=== PATIENT | female | born 1980 | race Caucasian/White ===

== ENCOUNTER 2016-07-01 16:28 | Inpatient (IN) | payer MEDICARE, OTHER ==
[2016-07-01 17:20] VITALS: BMI 63.7
[2016-07-01] MEDS ORDERED: SALINE FLUSH 10 ML DISP.SYRIN IVF ONE ×3 (17:37→21:19)
[2016-07-01] MEDS ORDERED: cefTRIAXone SODIUM 1 GM VIAL ONE (17:44)
[2016-07-01] MEDS ORDERED: NICOTINE 21mg 1 EACH PATCH.TD24 TD ONE (17:44)
[2016-07-01] MEDS ORDERED: AZITHROMYCIN 500 MG VIAL IV ONE (17:44)
[2016-07-01] MEDS ORDERED: IPRATROPIUM/ALBUTEROL SULFATE 3 ML AMPUL.NEB NEB ONE ×2 (17:45→19:25)
[2016-07-01] MEDS ORDERED: 0.9 % SODIUM CHLORIDE 250 ML IV ONE (17:45)
[2016-07-01] MEDS ORDERED: 0.9 % SODIUM CHLORIDE 1,000 ML IV ONE (17:45)
[2016-07-01] MEDS ORDERED: 0.9 % SODIUM CHLORIDE 50 ML IV ONE (17:45)
[2016-07-01] MEDS: 0.9 % SODIUM CHLORIDE 1,000 ML IV SCH (18:16)
[2016-07-01] MEDS: NICOTINE 21mg 1 EACH PATCH.TD24 TD SCH (18:16)
[2016-07-01] MEDS: cefTRIAXone SODIUM 1 GM in 0.9 % SODIUM CHLORIDE 50 ML IV SCH (18:16)
[2016-07-01] MEDS: IPRATROPIUM/ALBUTEROL SULFATE 3 ML AMPUL.NEB NEB SCH ×2 (18:17→21:34)
[2016-07-01] MEDS ORDERED: ACETAMINOPHEN 1,000 MG/100 ML INJ IV PRN (18:28)
--- NOTE | 2016-07-01 18:44 | History and Physical Report ---
History of Present Illnes - History of Present Illness Reason for Visit: Pneumonia History of Present Illness: Patient has had URI symptoms for several weeks. Presented to ER yesterday and found to have RML pneumonia without hypoxia. Flu screen negative. Patient refused admission - given a dose of rocephin. Continues to feel much worse today. Has mild asthma. Feels like she can't catch her breath. Low grade fevers. Chills and sweats. Found to be tachypneic. Today she called back and desired admission as she continues to feel worse and need more albuterol. - Past Medical History Cardiac: Other (Tachycardia) Pulmonary: Asthma Psych: Anxiety, Other (Schizoaffective disorder/PTSD/Borderline PD/OCD) Musculoskeletal: Chronic low back pain - Past Surgical History Past Surgical History: Cholecystectomy, (x 3), Hysterectomy, Other (L5 -S1 ruptured disc - polymer disc/cadaver bone/steel plates) - Past Family History Mother Family History: Hypertension - Past Social History Smoke: 1 pack per day Alcohol: None Lives: With Family - Health Maintenance Health Maintenance: Pneumococcal Vaccine Influenza Vaccine: Current for this Influenza Season Pneumonia Vaccine: Yes Resuscitation Status: Resusciation Status Resuscitation Status Full Code Review of Systems - Review of Systems Constitutional: Fever, Chills, Weakness Eyes: negative: pain ENT: Nose Discharge, Nose Congestion. negative: Ear Pain Respiratory: Cough, Shortness of Breath Cardiovascular: negative: Chest Pain Gastrointestinal: negative: Nausea, Vomiting Genitourinary: negative: Dysuria Musculoskeletal: Back Pain (chronic). negative: Neck Pain Skin: negative: Rash Neurological: Weakness - Medications/Allergies Allergies/Adverse Reactions: Allergies Allergy/AdvReac Type Severity Reaction Status Date / Time ketorolac tromethamine Allergy Mild light Verified 09/06/15 13:52 [From Toradol] headed tramadol HCl [From Ultram] Allergy Mild light Verified 09/06/15 13:52 headed codeine [Codeine] AdvReac Mild nausea Verified 09/06/15 13:52 Home Medications: Home Medications Albuterol Sulfate [ProAir RespiClick] 1 puff INH PRN PRN 07/01/16 Estradiol [Minivelle] 1 each TD 07/01/16 Gabapentin [Neurontin] 800 mg PO TID 07/01/16 Propranolol HCl [Inderal] 20 mg PO BID 07/01/16 Quetiapine Fumarate [Seroquel] 300 mg PO HS 07/01/16 Current Inpatient Medications: Current Inpatient Medications Acetaminophen (Ofirmev) 1,000 mg IV Q8H PRN PRN Reason: PAIN Albuterol/Ipratropium (Duoneb) 3 ml NEB Q4 [facility] Last Admin: 07/01/16 18:17 Dose: 3 ml Enoxaparin Sodium (Lovenox) 40 mg SQ QD [facility] Stop: 07/15/16 18:59 Gabapentin (Neurontin) 800 mg PO TID [facility] Sodium Chloride (Normal Saline) 1,000 mls @ 125 mls/hr IV Q10H [facility] Last Admin: 07/01/16 18:16 Dose: 125 mls/hr Azithromycin 500 mg/ Sodium (Chloride) 250 mls @ 125 mls/hr IV Q24H [facility] Stop: 07/11/16 17:59 Ceftriaxone Sodium 1 gm/ (Sodium Chloride) 50 mls @ 100 mls/hr IV QD [facility] Last Admin: 07/01/16 18:16 Dose: 100 mls/hr [place] Carbonate (Lithobid) 600 mg PO AM [facility] Naproxen (Naprosyn) 500 mg PO BID [facility] Nicotine (Habitrol 21mg) 1 each TD DAILY [facility] Last Admin: 07/01/16 18:16 Dose: 1 each Propranolol HCl (Inderal) 20 mg PO BID [facility] Quetiapine Fumarate (Seroquel) 300 mg PO DAILY [facility] Sodium Chloride (Normal Saline Flush) 3 ml IV BID [facility] Venlafaxine HCl (Effexor Xr) 75 mg PO DAILY [facility] Exam - Exam Vital Signs: Vital Signs (72 hours) 06/30/16 06/30/16 07/01/16 11:35 14:35 16:41 Temperature 98.4 F Pulse Rate [ 88 Right Radial] Pulse Rate [ 89 Right] Respiratory 26 H Rate Blood Pressure 115/80 Blood Pressure 115/80 [Left Arm] Blood Pressure 139/83 150/68 [Right Arm] O2 Sat by Pulse 98 Oximetry 07/01/16 17:11 Temperature Pulse Rate [ Right Radial] Pulse Rate [ Right] Respiratory Rate Blood Pressure Blood Pressure [Left Arm] Blood Pressure [Right Arm] O2 Sat by Pulse 95 Oximetry General: Alert, Oriented to Person, Oriented to Place, Oriented to Time, Cooperative, Mild distress HEENT: Atraumatic, PERRLA, EOMI, Mouth Mucous membr. moist/[place], Nose Mucous membr. moist/[place] Neck: Normal Range of Motion Lungs: Rhonchi (RML) Cardiovascular: Tachycardia Abdomen: Normal bowel sounds, Soft, No tenderness Integumentary: Normal Extremities: No edema Neurological: Normal gait, Normal speech, Strength Equal Bilat, Normal tone, Cranial nerves 3-12 NL Psych/Mental Status: Mental status NL, Mood NL, Appropriate Affect, Intact Judgment Assessment/Plan - Assessment/Plan (1) RML pneumonia Status: Acute Current Visit: Yes Qualifiers: Pneumonia type: due to unspecified organism Qualified Code(s): J18.9 - Pneumonia, unspecified organism Plan: Patient has failed outpatient treatment. Remains tachypneic. Blood cultures drawn. Start rocephin and zithromax. Duonebs. Monitor SATS. (2) Chronic back pain Status: Chronic Current Visit: No Qualifiers: Back pain location: low back pain (3) Schizoaffective disorder Status: Chronic Current Visit: No Qualifiers: Schizoaffective disorder type: depressive Qualified Code(s): F25.1 - Schizoaffective disorder, depressive type Plan: Continue current meds. (4) Anxiety Status: Acute Current Visit: Yes (5) Asthma Status: Acute Current Visit: Yes Qualifiers: Asthma severity: mild intermittent Asthma complication type: with acute exacerbation Qualified Code(s): J45.21 - Mild intermittent asthma with (acute ) exacerbation Plan: I don't think patient needs steroids at this time. Will schedule duonebs. Watch closely. VTE Assessment - RISK FACTOR SCORE VTE RISK FACTOR SCORES: ACUTE INFECTION OTHER THEN SEPSIS, ANTICIPATED BED CONFINEMENT OR IMMOBILIZATION > 24 HOURS - RISK VTE MODERATE RISK: SCORE OF 2 (RISK PROXIMAL DVT 2-4%) PROPHYAXIS NEEDED (Up moving around room so will only do chemical prevention)
[2016-07-01] MEDS ORDERED: ENOXAPARIN SODIUM 40 MG/0.4 ML DISP.SYRIN SQ ONE (19:24)
[2016-07-01] MEDS ORDERED: NAPROXEN 250 MG TABLET ONE (19:24)
[2016-07-01] MEDS ORDERED: PROPRANOLOL HCL 20 MG TABLET PO ONE (19:24)
[2016-07-01] MEDS ORDERED: ACETAMINOPHEN 1,000 MG/100 ML INJ IV ONE (19:25)
[2016-07-01] MEDS ORDERED: GABAPENTIN 100 MG CAPSULE ONE ×2 (19:25→19:26)
[2016-07-01] MEDS ORDERED: QUEtiapine FUMARATE 25 MG TABLET PO ONE ×2 (19:25→20:50)
[2016-07-01] MEDS ORDERED: ONDANSETRON HCL/PF 4 MG/ 2ML VIAL IVP PRN (19:34)
[2016-07-01] MEDS ORDERED: guaiFENesin/CODEINE PHOS 5ML SYR PO ONE (19:40)
[2016-07-01] MEDS: ENOXAPARIN SODIUM 40 MG/0.4 ML DISP.SYRIN SQ SCH (19:43)
[2016-07-01] MEDS: GABAPENTIN 300 MG CAPSULE PO SCH (19:43)
[2016-07-01] MEDS: guaiFENesin/CODEINE PHOS 30ML BOTTLE PO PRN (19:44)
[2016-07-01] MEDS: SALINE FLUSH 10 ML DISP.SYRIN IV SCH (19:45)
[2016-07-01] MEDS: PROPRANOLOL HCL 20 MG TABLET PO SCH (19:45)
[2016-07-01] MEDS: NAPROXEN 250 MG TABLET PO SCH (19:45)
[2016-07-01] MEDS: QUEtiapine FUMARATE 25 MG TABLET PO SCH (20:53)
[2016-07-01] MEDS: AZITHROMYCIN 500 MG in 0.9 % SODIUM CHLORIDE 250 ML IV SCH (20:54)
[2016-07-01] MEDS ORDERED: HYDROcodone /APAP 5/325 1 EACH TABLET ONE (21:38)
[2016-07-01] MEDS: HYDROcodone /APAP 5/325 1 EACH TABLET PO PRN (21:42)
[2016-07-02] MEDS ORDERED: SALINE FLUSH 10 ML DISP.SYRIN IVF ONE ×4 (02:01→22:37)
[2016-07-02] MEDS: IPRATROPIUM/ALBUTEROL SULFATE 3 ML AMPUL.NEB NEB SCH ×6 (02:06→20:51)
[2016-07-02] MEDS ORDERED: VENLAFAXINE HCL 37.5 MG CAP.ER.24H PO ONE (05:58)
[2016-07-02] MEDS ORDERED: NAPROXEN 250 MG TABLET ONE ×2 (05:59→19:19)
[2016-07-02] MEDS ORDERED: PROPRANOLOL HCL 20 MG TABLET PO ONE ×2 (05:59→19:19)
[2016-07-02] MEDS ORDERED: QUEtiapine FUMARATE 25 MG TABLET PO ONE (06:00)
[2016-07-02] MEDS ORDERED: NICOTINE 21mg 1 EACH PATCH.TD24 TD ONE (06:00)
[2016-07-02] MEDS ORDERED: LITHIUM CARBONATE 300 MG CAPSULE PO ONE (06:01)
[2016-07-02] MEDS ORDERED: GABAPENTIN 100 MG CAPSULE ONE ×3 (06:01→16:49)
[2016-07-02] MEDS ORDERED: guaiFENesin/CODEINE PHOS 5ML SYR PO ONE ×3 (06:05→19:59)
[2016-07-02] MEDS ORDERED: HYDROcodone /APAP 5/325 1 EACH TABLET ONE ×3 (06:05→19:19)
[2016-07-02] MEDS: HYDROcodone /APAP 5/325 1 EACH TABLET PO PRN ×3 (06:14→20:01)
[2016-07-02] MEDS: guaiFENesin/CODEINE PHOS 30ML BOTTLE PO PRN ×3 (06:16→20:01)
[2016-07-02] MEDS: 0.9 % SODIUM CHLORIDE 1,000 ML IV SCH ×2 (06:27→13:12)
[2016-07-02 06:32] LABS: BASOPHILS % 0.2 (0.0-1.5); EOSINOPHILS % 1.5 % (0.0-6.8); LYMPHOCYTES # 2.6 # k/uL (0.6-4.0); MEAN CORPUSCULAR HEMOGLOBIN 29.4 pg (28.0-34.0); MONOCYTES # 0.4 # k/uL (0.0-0.9); MONOCYTES % 4.3 % (0.0-11.0); NEUTROPHILS # 7.2 # k/uL (1.4-7.7)
[2016-07-02 06:52] LABS: eGFR (African) > 60; eGFR (Non-African) > 60
--- NOTE | 2016-07-02 06:58 | Diagnostic Imaging Report ---
[facility] [id number] [facility].[address] 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 COMPARISON: 06/30/2016. TECHNIQUE: PA and lateral views of the chest were performed. FINDINGS: There is a right middle lobe consolidative infiltrate, similar to that seen previously. ~The left lung is clear. ~No pneumothorax or pulmonary edema. ~The heart is not enlarged. IMPRESSION: Right middle lobe pneumonia. ~The left lung is clear. 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
--- NOTE | 2016-07-02 07:45 | Inpatient Progress Note ---
Subjective - Required Recertification Statement I anticipate X number of days because-include discharge plan: 1 - Review of Systems Subjective: Patient feeling better today. Feels breathing is easier. Objective - Exam Vitals and I&O: Vital Signs Temp 98.6 F 07/02/16 06:00 Pulse 72 07/02/16 06:00 Resp 20 07/02/16 06:00 BP 103/62 07/02/16 06:00 Pulse Ox 99 07/02/16 06:00 Intake & Output 07/01/16 07/01/16 07/02/16 11:59 23:59 11:59 Intake Total 1500 Balance 1500 Weight 158 kg Intake: IV 1500 Right Wrist 1500 Other: Voiding Method Toilet # Voids 1 General: Alert, Oriented to Person, Oriented to Place, Oriented to Time, Cooperative, No acute distress Lungs: Rhonchi Cardiovascular: Regular rate - Results Results: Laboratory Results WBC 10.40 K/ul (4.00-12.00) 07/02/16 06:25 RBC 3.74 M/ul (3.90-5.20) L 07/02/16 06:25 Hgb 11.0 g/dL (12.0-16.0) L 07/02/16 06:25 Hct 34.7 % (34.5-46.5) 07/02/16 06:25 MCV 92.9 fl (80.0-100.0) 07/02/16 06:25 MCH 29.4 pg (28.0-34.0) 07/02/16 06:25 MCHC 31.7 g/dL (30.0-36.0) 07/02/16 06:25 RDW 13.2 % (11.3-14.3) 07/02/16 06:25 Plt Count 355 K/mm3 (130-400) 07/02/16 06:25 Neut % (Auto) 68.6 % (39.0-79.0) 07/02/16 06:25 Lymph % (Auto) 24.6 % (16.0-50.0) 07/02/16 06:25 [place] % (Auto) 4.3 % (0.0-11.0) 07/02/16 06:25 Eos % (Auto) 1.5 % (0.0-6.8) 07/02/16 06:25 Baso % (Auto) 0.2 (0.0-1.5) 07/02/16 06:25 Neut # 7.2 # k/uL (1.4-7.7) 07/02/16 06:25 Lymph # 2.6 # k/uL (0.6-4.0) 07/02/16 06:25 [place] # 0.4 # k/uL (0.0-0.9) 07/02/16 06:25 Eos # 0.2 # k/uL (0.0-0.6) 07/02/16 06:25 Baso # 0.0 # k/uL (0.0-0.5) 07/02/16 06:25 Reactive Lymphs % 0.8 % (0.0-5.0) 07/02/16 06:25 Reactive Lymphs # 0.1 # k/uL (0.0-0.8) 07/02/16 06:25 Sodium 141 mmol/L (136-145) 07/02/16 06:25 Potassium 3.7 mmol/L (3.5-5.0) 07/02/16 06:25 Chloride 103 mmol/L (98-110) 07/02/16 06:25 Carbon Dioxide 28 mmol/L (20-32) 07/02/16 06:25 BUN 6 mg/dL (10-26) L 07/02/16 06:25 Creatinine 0.6 mg/dL (0.4-1.5) 07/02/16 06:25 Estimated Creat Clear 376 07/02/16 06:25 Est GFR ( Amer) > 60 (60-) 07/02/16 06:25 Est GFR (Non-Af Amer) > 60 (60-) 07/02/16 06:25 Glucose 88 mg/dL (70-99) 07/02/16 06:25 Calcium 9.7 mg/dL (8.5-10.5) 07/02/16 06:25 Total Bilirubin 0.2 mg/dL (0.2-1.2) 07/02/16 06:25 AST 11 U/L (0-41) 07/02/16 06:25 ALT 20 U/L (0-45) 07/02/16 06:25 Alkaline Phosphatase 92 U/L (46-116) 07/02/16 06:25 Total Protein 7.4 g/dL (6.0-8.5) 07/02/16 06:25 Albumin 4.3 g/dL (3.0-5.5) 07/02/16 06:25 Assessment/Plan - Assessment/Plan (1) RML pneumonia Status: Acute Current Visit: Yes Qualifiers: Pneumonia type: due to unspecified organism Qualified Code(s): J18.9 - Pneumonia, unspecified organism Plan: CBC normal. Cont. IV antibiotics. Blood cultures not done due to 2 days of antibiotics before admission and afebrile. Anticipate d/c tomorrow. (2) Chronic back pain Status: Chronic Current Visit: No Qualifiers: Back pain location: low back pain Plan: K pad prn. (3) Schizoaffective disorder Status: Chronic Current Visit: No Qualifiers: Schizoaffective disorder type: depressive Qualified Code(s): F25.1 - Schizoaffective disorder, depressive type (4) Anxiety Status: Acute Current Visit: Yes (5) Asthma Status: Acute Current Visit: Yes Qualifiers: Asthma severity: mild intermittent Asthma complication type: with acute exacerbation Qualified Code(s): J45.21 - Mild intermittent asthma with (acute ) exacerbation
[2016-07-02] MEDS: VENLAFAXINE HCL 37.5 MG CAP.ER.24H PO SCH (08:32)
[2016-07-02] MEDS: NICOTINE 21mg 1 EACH PATCH.TD24 TD SCH (08:33)
[2016-07-02] MEDS: PROPRANOLOL HCL 20 MG TABLET PO SCH ×2 (08:35→20:55)
[2016-07-02] MEDS: NAPROXEN 250 MG TABLET PO SCH ×2 (08:36→20:58)
[2016-07-02] MEDS: LITHIUM CARBONATE 300 MG CAPSULE PO SCH (08:36)
[2016-07-02] MEDS: GABAPENTIN 300 MG CAPSULE PO SCH ×3 (08:40→18:16)
[2016-07-02] MEDS: QUEtiapine FUMARATE 25 MG TABLET PO SCH (10:25)
[2016-07-02] MEDS: SALINE FLUSH 10 ML DISP.SYRIN IV SCH ×2 (13:09→21:31)
[2016-07-02] MEDS ORDERED: ENOXAPARIN SODIUM 40 MG/0.4 ML DISP.SYRIN SQ ONE (16:50)
[2016-07-02] MEDS ORDERED: cefTRIAXone SODIUM 1 GM VIAL ONE (17:46)
[2016-07-02] MEDS ORDERED: AZITHROMYCIN 500 MG VIAL IV ONE (17:48)
[2016-07-02] MEDS ORDERED: 0.9 % SODIUM CHLORIDE 50 ML IV ONE (17:48)
[2016-07-02] MEDS ORDERED: 0.9 % SODIUM CHLORIDE 250 ML IV ONE (17:49)
[2016-07-02] MEDS ORDERED: IPRATROPIUM/ALBUTEROL SULFATE 3 ML AMPUL.NEB NEB ONE (17:57)
[2016-07-02] MEDS: AZITHROMYCIN 500 MG in 0.9 % SODIUM CHLORIDE 250 ML IV SCH (18:09)
[2016-07-02] MEDS: cefTRIAXone SODIUM 1 GM in 0.9 % SODIUM CHLORIDE 50 ML IV SCH (18:09)
[2016-07-02] MEDS: ENOXAPARIN SODIUM 40 MG/0.4 ML DISP.SYRIN SQ SCH (18:51)
[2016-07-03] MEDS ORDERED: 0.9 % SODIUM CHLORIDE 1,000 ML IV ONE (00:59)
[2016-07-03] MEDS: 0.9 % SODIUM CHLORIDE 1,000 ML IV SCH ×2 (01:02→09:35)
[2016-07-03] MEDS ORDERED: HYDROcodone /APAP 5/325 1 EACH TABLET ONE ×2 (04:27→10:36)
[2016-07-03] MEDS ORDERED: guaiFENesin/CODEINE PHOS 30ML BOTTLE PO ONE (04:29)
[2016-07-03] MEDS: HYDROcodone /APAP 5/325 1 EACH TABLET PO PRN ×2 (04:29→10:39)
[2016-07-03] MEDS: IPRATROPIUM/ALBUTEROL SULFATE 3 ML AMPUL.NEB NEB SCH ×3 (04:31→11:36)
[2016-07-03] MEDS ORDERED: VENLAFAXINE HCL 37.5 MG CAP.ER.24H PO ONE (04:58)
[2016-07-03] MEDS ORDERED: SALINE FLUSH 10 ML DISP.SYRIN IVF ONE ×2 (04:58→09:27)
[2016-07-03] MEDS ORDERED: LITHIUM CARBONATE 300 MG CAPSULE PO ONE (04:59)
[2016-07-03] MEDS ORDERED: PROPRANOLOL HCL 20 MG TABLET PO ONE (04:59)
[2016-07-03] MEDS ORDERED: NAPROXEN 250 MG TABLET ONE (04:59)
[2016-07-03] MEDS ORDERED: NICOTINE 21mg 1 EACH PATCH.TD24 TD ONE (04:59)
[2016-07-03] MEDS ORDERED: GABAPENTIN 100 MG CAPSULE ONE (04:59)
[2016-07-03] MEDS: VENLAFAXINE HCL 37.5 MG CAP.ER.24H PO SCH (08:56)
[2016-07-03] MEDS: PROPRANOLOL HCL 20 MG TABLET PO SCH (08:57)
[2016-07-03] MEDS: LITHIUM CARBONATE 300 MG CAPSULE PO SCH (08:57)
[2016-07-03] MEDS: NAPROXEN 250 MG TABLET PO SCH (08:57)
[2016-07-03] MEDS: GABAPENTIN 300 MG CAPSULE PO SCH (08:57)
[2016-07-03] MEDS: NICOTINE 21mg 1 EACH PATCH.TD24 TD SCH (08:58)
--- NOTE | 2016-07-03 09:02 | Discharge Summary ---
Discharge Summary - Discharge Sumary History of Present Illness: Patient has had URI symptoms for several weeks. Presented to ER yesterday and found to have RML pneumonia without hypoxia. Flu screen negative. Patient refused admission - given a dose of rocephin. Continues to feel much worse today. Has mild asthma. Feels like she can't catch her breath. Low grade fevers. Chills and sweats. Found to be tachypneic. Today she called back and desired admission as she continues to feel worse and need more albuterol. Condition at Discharge: Stable Home Medications: Ambulatory Orders Medication Instructions Recorded [place] Carbonate 600 mg PO AM 02/14/13 Venlafaxine HCl [Effexor Xr] 75 mg PO DAILY 11/11/13 Albuterol Sulfate [ProAir 1 puff INH PRN PRN 07/01/16 RespiClick] Estradiol [Minivelle] 1 each TD 07/01/16 Gabapentin [Neurontin] 800 mg PO TID 07/01/16 Propranolol HCl [Inderal] 20 mg PO BID 07/01/16 Quetiapine Fumarate [Seroquel] 300 mg PO HS 07/01/16 Levofloxacin [Levaquin] 500 mg PO DAILY #7 tablet 07/03/16 Consultations this Visit: None Procedures this Visit: None Allergies/Adverse Reactions: Allergies Allergy/AdvReac Type Severity Reaction Status Date / Time ketorolac tromethamine Allergy Mild light Verified 09/06/15 13:52 [From Toradol] headed tramadol HCl [From Ultram] Allergy Mild light Verified 09/06/15 13:52 headed codeine [Codeine] AdvReac Mild nausea Verified 09/06/15 13:52 Patient Problems: Current Active Problems Problem Status Onset Anxiety Acute Asthma Acute RML pneumonia Acute Hospital Course: Discharge Dx - RML pneumonia; Asthma; Anxiety; Chronic back pain. Disposition - Home
[2016-07-03] MEDS: guaiFENesin/CODEINE PHOS 30ML BOTTLE PO PRN (09:17)
[2016-07-03] MEDS ORDERED: IPRATROPIUM/ALBUTEROL SULFATE 3 ML AMPUL.NEB NEB ONE (09:28)
[2016-07-03] MEDS: SALINE FLUSH 10 ML DISP.SYRIN IV SCH (09:30)
[2016-07-03] MEDS ORDERED: AZITHROMYCIN 250 MG TABLET PO ONE ×2 (10:20→10:39)
[2016-07-03] MEDS ORDERED: cefTRIAXone SODIUM 1 GM VIAL IM ONE (10:23)
[2016-07-03] MEDS ORDERED: cefTRIAXone SODIUM 1 GM VIAL ONE (10:38)
[2016-07-03 12:27] VITALS: BP 129/90
[2016-07-03] MEDS ORDERED: QUEtiapine FUMARATE 25 MG TABLET PO SCH (21:00)
== END 2016-07-03 11:17 | disposition home or self-care (01) | DRG 194 ==
LOC: SOUTH 16:28
PROVIDERS: ADMIT Family Medicine; ATTEND Family Medicine
DX: J18.9 Pneumonia, unspecified organism (principal); J45.901 Unspecified asthma with (acute) exacerbation; F41.9 Anxiety disorder, unspecified; M54.5 Low back pain
CPT/HCPCS: 36415; 71020; 80053; 85025; A9270; J0456; J0696; J1650; J7030; J7050; 96365; 96375; 99222; 99232; 99238; 99283; 99284; J2405; J7626; S1016

== ENCOUNTER 2016-07-04 21:29 | Emergency (ER) | payer MEDICARE, OTHER ==
[2016-07-04] MEDS ORDERED: ALBUTEROL SULFATE 2.5 MG/3 ML AMPUL.NEB NEB ONE (22:13)
[2016-07-04] MEDS ORDERED: methylPREDNISolone SOD SUCC 40 MG/ML VIAL IM ONE ×2 (22:15→22:22)
--- NOTE | 2016-07-04 22:56 | ED Physician Documentation ---
General Adult - HISTORIAN Historian: patient - HPI Stated Complaint: cough, recent dx pneumonia Chief Complaint: General Adult Onset: days ago Timing: still present Further Comments: yes (Pt is a 36 yo female who was d/c'd from [facility] on 07/01/16 after admission for pneuomonia. Pt is continuing to take Levquin and albuterol MDI's at home. Pt has had nasal discharge with thick yellow discharge and is not feeling much better. Pt also states that she is suffering from anxiety and that her insurance will not cover the vistaril that she usually takes for it.) - ROS CONST: fever, chills, other (malaise) EYES/ENT: nasal drainage, nasal congestion CVS/RESP: shortness of breath (chest discomfort is improving since tx for pneumonia), cough GI/: none MS/SKIN/LYMPH: none - PAST HX Past History: asthma (HLD, SchizoAffective d/o, ), other Surgeries/Procedures: , cholecystectomy, hysterectomy, other (ortho) Allergies/Adverse Reactions: Allergies Allergy/AdvReac Type Severity Reaction Status Date / Time ketorolac tromethamine Allergy Mild light Verified 07/04/16 22:44 [From Toradol] headed tramadol HCl [From Ultram] Allergy Mild light Verified 07/04/16 22:44 headed codeine [Codeine] AdvReac Mild nausea Verified 07/04/16 22:44 Home Medications: Ambulatory Orders Medication Instructions Recorded [place] Carbonate 600 mg PO AM 02/14/13 Venlafaxine HCl [Effexor Xr] 75 mg PO DAILY 11/11/13 Albuterol Sulfate [ProAir 1 puff INH PRN PRN 07/01/16 RespiClick] Estradiol [Minivelle] 1 each TD DIRECTED 07/01/16 Gabapentin [Neurontin] 800 mg PO TID 07/01/16 Propranolol HCl [Inderal] 20 mg PO BID 07/01/16 Quetiapine Fumarate [Seroquel] 300 mg PO HS 07/01/16 Levofloxacin [Levaquin] 500 mg PO DAILY #7 tablet 07/03/16 - SOCIAL HX Smoking History: cigarettes - FAMILY HX Family History: No - VITAL SIGNS Vital Signs: Vital Signs Temp Pulse Resp BP Pulse Ox 133/86 07/03/16 10:00 - REVIEWED ASSESSMENTS Nursing Assessment Reviewed: Yes Vitals Reviewed: Yes Progress - Progress Progress: Albuterol HFN x 1 Solu-medrol 40 mg IM Ativan 1 mg po Azithromycin 500 mg po Rx Albuterol (2.5/3ml). One nebulizer treatment every 4 to 6 hrs as needed. ( May use MDI Albuterol instead if desired.) Rx Azithromycin 250 mg. Take one daily for 5 days. Rx Ativan 1 mg. Take one every 8 hrs as needed for anxiety. Follow up with primary provider if symptoms continue. Continue other home medications. - EKG/XRAY/CT XRAY: chest (Slightly improved right middle lobe pneumonia since 07/02/16.) ED Results Lab/Radiology - Orders Orders: ED Orders Category Date Time Status CHEST 2 VIEW [CHEST P.A.&LAT 2 VIEWS] [RAD] Stat Exams 07/04/16 Ordered Albuterol Sulfate [Ventolin] Med 07/04/16 22:13 Discontinued 2.5 mg NEB NOW ONE methylPREDNISolone SOD SUCC [Solu-MEDROL] Med 07/04/16 22:22 Discontinued 40 mg IM NOW ONE methylPREDNISolone SOD SUCC [Solu-MEDROL] Med 07/04/16 22:15 Discontinued 80 mg IM NOW ONE General Adult Physical Exam - PHYSICAL EXAM GENERAL APPEARANCE: moderate distress EENT: eye inspection normal, ENT inspection normal, pharynx normal NECK: normal inspection, supple RESPIRATORY: wheezes CVS: reg rate & rhythm, heart sounds normal ABDOMEN: soft, no organomegaly, normal bowel sounds BACK: normal inspection, no CVA tenderness SKIN: warm/dry, normal color EXTREMITIES: non-tender, normal range of motion, no evidence of injury, no edema NEURO: oriented X3, motor nml, sensation nml, other (anxious) Discharge Clincal Impression: Anxiety Pneumonia Qualifiers: Pneumonia type: due to unspecified organism Laterality: right Lung location: middle lobe of lung Qualified Code(s): J18.9 - Pneumonia, unspecified organism Referrals: Praveena Abdi MD [Primary Care Provider] - 2 Days Home Medications: Ambulatory Orders [place] Carbonate 600 mg PO AM 02/14/13 Venlafaxine HCl [Effexor Xr] 75 mg PO DAILY 11/11/13 Albuterol Sulfate [ProAir RespiClick] 1 puff INH PRN PRN 07/01/16 Estradiol [Minivelle] 1 each TD DIRECTED 07/01/16 Gabapentin [Neurontin] 800 mg PO TID 07/01/16 Propranolol HCl [Inderal] 20 mg PO BID 07/01/16 Quetiapine Fumarate [Seroquel] 300 mg PO HS 07/01/16 Levofloxacin [Levaquin] 500 mg PO DAILY #7 tablet 07/03/16 Condition: Good Disposition: HOME, SELF-CARE Decision to Admit: NO Decision Time: 00:35
[2016-07-04] MEDS ORDERED: 0.9 % SODIUM CHLORIDE 1,000 ML IV ONE (23:08)
[2016-07-04] MEDS ORDERED: LORazepam 1 MG TABLET PO ONE (23:42)
[2016-07-05] MEDS ORDERED: AZITHROMYCIN 250 MG TABLET PO ONE
[2016-07-05 00:05] LABS: BASOPHILS % 0.3 (0.0-1.5); EOSINOPHILS % 0.5 % (0.0-6.8); LYMPHOCYTES # 3.4 # k/uL (0.6-4.0); MEAN CORPUSCULAR HEMOGLOBIN 29.5 pg (28.0-34.0); MONOCYTES # 0.6 # k/uL (0.0-0.9); MONOCYTES % 4.5 % (0.0-11.0); NEUTROPHILS # 8.2 # k/uL (1.4-7.7)
[2016-07-05 00:16] LABS: eGFR (African) > 60; eGFR (Non-African) > 60
[2016-07-05 02:41] VITALS: BP 144/101
--- NOTE | 2016-07-05 06:37 | Diagnostic Imaging Report ---
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 ~There is no parapneumonic effusion. ~ The left lung is clear. ~Heart size is normal. ~The right middle lobe infiltrate has slightly improved since the 07/02/2016 exam. IMPRESSION: ~ Slightly improved right middle lobe pneumonia. ~ Electronically signed on Jul 04, 2016 11:15:01 PM CORPORATE ADMINISTRATIVE ASSISTANT by: Sanjay RODRIGUEZ
== END 2016-07-05 00:36 | disposition home or self-care (01) ==
LOC: ED 21:29
DX: J18.9 Pneumonia, unspecified organism (principal); F41.9 Anxiety disorder, unspecified
CPT/HCPCS: 71020; 80053; 85025; J1030; 96372; 99283; J2920; S1016

== ENCOUNTER 2016-07-17 02:37 | Emergency (ER) | payer MEDICARE, OTHER ==
[2016-07-17] MEDS ORDERED: BUTORPHANOL TARTRATE 2 MG/ML VIAL IM ONE (03:08)
--- NOTE | 2016-07-17 03:10 | ED Physician Documentation ---
Sore Throat/Dental Pain - HISTORIAN Historian: patient - HPI Stated Complaint: dental pain Chief Complaint: Dental Pain Onset: days ago Context: Fractured Tooth, Dental Caries - ROS CONST: no problems CVS/RESP: none GI/: denies: nausea, vomiting NEURO/PSYCH: none - PAST HX Past History: gum disease Other History: other (bipolar) Allergies/Adverse Reactions: Allergies Allergy/AdvReac Type Severity Reaction Status Date / Time ketorolac tromethamine Allergy Mild light Verified 07/17/16 02:47 [From Toradol] headed tramadol HCl [From Ultram] Allergy Mild light Verified 07/17/16 02:47 headed codeine [Codeine] AdvReac Mild nausea Verified 07/17/16 02:47 Home Medications: Ambulatory Orders Medication Instructions Recorded [place] Carbonate 600 mg PO AM 02/14/13 Venlafaxine HCl [Effexor Xr] 75 mg PO DAILY 11/11/13 Albuterol Sulfate [ProAir 1 puff INH PRN PRN 07/01/16 RespiClick] Estradiol [Minivelle] 1 each TD DIRECTED 07/01/16 Gabapentin [Neurontin] 800 mg PO TID 07/01/16 Propranolol HCl [Inderal] 20 mg PO BID 07/01/16 Quetiapine Fumarate [Seroquel] 300 mg PO HS 07/01/16 - SOCIAL HX Smoking History: cigarettes Alcohol Use: occasionally - FAMILY HX Family History: No - VITAL SIGNS Vital Signs: Vital Signs Temp Pulse Resp BP Pulse Ox 97.8 F 74 14 112/76 98 07/17/16 02:37 07/17/16 02:37 07/17/16 02:37 07/17/16 02:37 07/17/16 02:37 - REVIEWED ASSESSMENTS Nursing Assessment Reviewed: Yes Vitals Reviewed: Yes ED Results Lab/Radiology - Orders Orders: ED Orders Category Date Time Status Butorphanol Tartrate [Stadol] Med 07/17/16 03:08 Once 2 mg IM NOW ONE Dental Pain Physical Exam - EXAM General Appearance: mild distress Mouth/Throat: lips nml, pharynx nml, voice nml, no drooling, no air way problems , no thrush, membranes nml, dental tenderness, widespread dental decay CVS: reg. rate & rhythm Skin: warm/dry Neuro/Psych: No: weakness Discharge Clincal Impression: Dental caries, Pain, dental Referrals: Praveena Abdi MD [Primary Care Provider] - 2 Days Home Medications: Ambulatory Orders [place] Carbonate 600 mg PO AM 02/14/13 Venlafaxine HCl [Effexor Xr] 75 mg PO DAILY 11/11/13 Albuterol Sulfate [ProAir RespiClick] 1 puff INH PRN PRN 07/01/16 Estradiol [Minivelle] 1 each TD DIRECTED 07/01/16 Gabapentin [Neurontin] 800 mg PO TID 07/01/16 Propranolol HCl [Inderal] 20 mg PO BID 07/01/16 Quetiapine Fumarate [Seroquel] 300 mg PO HS 07/01/16 Condition: Stable Disposition: 01 HOME, SELF-CARE Decision to Admit: NO Decision Time: 03:09
[2016-07-17 06:58] VITALS: BP 112/76
== END 2016-07-17 03:18 | disposition home or self-care (01) ==
LOC: ED 02:37
DX: K02.9 Dental caries, unspecified (principal)
CPT/HCPCS: 96372; 99282; 99283; J0595

== ENCOUNTER 2017-02-13 09:25 | Emergency (ER) | payer MEDICARE, OTHER ==
[2017-02-13] MEDS ORDERED: ACETAMINOPHEN 325 MG TABLET PO ONE (10:08)
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
[2017-02-13 10:32] VITALS: BP 122/59
[2017-02-13 10:35] LABS: AMPHETAMINE NEGATIVE ng/mL (<1000); BARBITURATES NEGATIVE ng/mL (<300); CANNABINOIDS NEGATIVE ng/mL (< 50); COCAINE NEGATIVE ng/mL (<150); METHAMPHETAMINE NON NEGATIVE ng/mL (<1000); METHYLENEDIOXYMETHAMPHETAMINE NEGATIVE ng/mL (<500); MORPHINE NEGATIVE ng/mL (<300)
== END 2017-02-13 10:30 | disposition home or self-care (01) ==
LOC: ED 09:25
DX: F15.10 Other stimulant abuse, uncomplicated (principal)
CPT/HCPCS: 80377; 99283; G0481

== ENCOUNTER 2018-07-11 20:16 | Emergency (ER) | payer OTHER ==
[~2018-07-11 20:16] MED LIST: HYDROcodone /APAP 5/325 1 EACH TABLET ONE; KETOROLAC TROMETHAMINE 60 MG/2 ML VIAL ONE; methylPREDNISolone SOD SUCC 125 MG/2 ML VIAL ONE
--- NOTE | 2018-07-12 06:30 | Diagnostic Imaging Report ---
KASSANDRA WARREN [facility] [id number] [facility] [address] [place], [place]. [address] Report Submission Date: Jul 11, 2018 9:51:19 PM RN TRAUMA Patient Study Name: MANDA SPRING Date: Jul 11, 2018 9:05:11 PM RN TRAUMA Modality Type: DX Gender: U Description: SPINE : 78 Institution: [facility] Physician: KASSANDRA WARREN 3 views of the sacrum History: FALL, PAIN X 2 DAYS No comparison studies The pubic symphysis and both sacroiliac joints are intact. Hardware is seen at the S1 region. No dislocation at the sacrococcygeal joint. No obvious fracture fragment is identified. Nondisplaced fracture is difficult to entirely exclude due to osseous overlap Impression: 1. Intact pubic symphysis and sacroiliac joints. No dislocation. No fracture fragment is identified. 2. A lucent line at the inferior sacrum is likely architectural however a non displaced sacral fracture is difficult to entirely exclude secondary to osseous overlap. Nuclear medicine scan may be considered as relevant. Electronically signed on Jul 11, 2018 9:51:19 PM RN TRAUMA by: Shannan RODRIGUEZ
== END 2018-07-11 21:54 ==
LOC: ED 20:16
DX: S39.012A Strain of muscle, fascia and tendon of lower back, initial encounter (principal); W01.0XXA Fall on same level from slipping, tripping and stumbling without subsequent striking against object, initial encounter; Y93.9 Activity, unspecified; Y92.009 Unspecified place in unspecified non-institutional (private) residence as the place of occurrence of the external cause
CPT/HCPCS: 72220; 96372; 99282; 99284; A9270; J1885; J2930

== ENCOUNTER 2018-08-26 17:32 | Emergency (ER) | payer OTHER ==
[2018-08-26] MEDS ORDERED: AMOXICILLIN/POT 875/125 1 EACH PO ONE (18:05)
[2018-08-26] MEDS ORDERED: HYDROcodone /APAP 5/325 1 EACH TABLET PO ONE (18:07)
--- NOTE | 2018-08-26 18:10 | ED Physician Documentation ---
Sore Throat/Dental Pain - HPI Stated Complaint: Right jaw pain Chief Complaint: Dental Pain Additional Information: Patient presents to ED with a 2 day history of right lower dental pain after tooth extraction on Monday. Patient states the dentist only gave her 5 tablet of [place] and she is out. She has an appointment with the dental surgeon tomorrow. Patient is smoking. Onset: days ago (2) Associated Symptoms: denies: fever - ROS CONST: no problems CVS/RESP: none GI/: denies: nausea, vomiting MS/SKIN/LYMPH: denies: rash NEURO/PSYCH: denies: headache - PAST HX Past History: none Other History: none Allergies/Adverse Reactions: Allergies Allergy/AdvReac Type Severity Reaction Status Date / Time oxymorphone Allergy Face Verified 08/26/18 17:55 Swelling codeine [Codeine] AdvReac Mild nausea Verified 08/26/18 17:55 ketorolac tromethamine AdvReac Mild light Verified 08/26/18 17:55 [From Toradol] headed tramadol HCl [From Ultram] AdvReac Mild light Verified 08/26/18 17:55 headed Home Medications: Ambulatory Orders Medication Instructions Recorded [place] Carbonate 600 mg PO AM 02/14/13 Venlafaxine HCl [Effexor Xr] 75 mg PO DAILY 11/11/13 Estradiol [Minivelle] 1 each TD DIRECTED 07/01/16 Gabapentin [Neurontin] 800 mg PO TID 07/01/16 Propranolol HCl [Inderal] 20 mg PO BID 07/01/16 Quetiapine Fumarate [Seroquel] 300 mg PO HS 07/01/16 - SOCIAL HX Smoking History: cigarettes, greater than 1 pack/day Alcohol Use: none Drug Use: methamphetamines - FAMILY HX Family History: No - VITAL SIGNS Vital Signs: Vital Signs Temp Pulse Resp BP Pulse Ox 98.6 F 90 16 135/97 96 08/26/18 17:35 08/26/18 17:35 08/26/18 17:35 08/26/18 17:35 08/26/18 17:35 - REVIEWED ASSESSMENTS Nursing Assessment Reviewed: Yes Vitals Reviewed: Yes ED Results Lab/Radiology - Orders Orders: ED Orders Category Date Time Status Amoxicillin/Potassium Clav [AUGMENTIN 875MG/125 mg Med 08/26/18 18:05 Once Tablet] 1 each PO NOW ONE HYDROcodone /APAP 5/325 [[place] 5/325] Med 08/26/18 18:07 Once 1 each PO NOW ONE Dental Pain Physical Exam - EXAM General Appearance: no acute distress, alert Head/Neck: head nml inspection Eyes: PERRL Mouth/Throat: lips nml, other (mild redness and swelling at right lower front. ). No: dry sockets Respiratory: no resp. distress, breath sounds nml CVS: reg. rate & rhythm, heart sounds nml Abdomen: soft, normal bowel sounds Extremities: non-tender Skin: warm/dry, normal color Neuro/Psych: none Discharge Clincal Impression: Pain, dental Referrals: Primary Doctor,No [Primary Care Provider] - 2 Days Additional Instructions: 1. Take antibiotic as directed 2. Tylenol and/or Ibuprofen as needed for pain 3. Salt/baking soda in warm water mouth rinses after eating, drinking 4. DO NOT smoke 5. Follow up with Dentist office as already scheduled tomorrow. 6. Return to ER for new or worsening symptoms Condition: Stable Disposition: 01 HOME, SELF-CARE Decision to Admit: NO Date of Decison to Admit: 08/26/18 Decision Time: 18:25
[2018-08-26 18:27] VITALS: BP 122/87
== END 2018-08-26 18:22 | disposition home or self-care (01) ==
LOC: ED 17:32
DX: K08.89 Other specified disorders of teeth and supporting structures (principal); Z72.0 Tobacco use
CPT/HCPCS: 99282; 99283; A9270-GY

== ENCOUNTER 2019-04-20 15:35 | Emergency (ER) | payer OTHER ==
--- NOTE | 2019-04-20 15:51 | ED Physician Documentation ---
Lower Extremity Problem - HISTORIAN Historian: patient - HPI Chief Complaint: Lower Extremity Problem (right knee pain) Location of Injury: R knee Timing: still present Recent Injury: No Where: home Severity: mild Quality: pain Exacerbated By: walking Relieved By: nothing Associated Symptoms: denies: chest pain, shortness of breath - ROS CONST: no problems MS/SKIN/LYMPH: none CVS/RESP: none GI/: none EYES/ENT: none NERUO/PSYCH: denies: difficulty walking - PAST HX Past History: chronic back pain Other History: other (depression, GI ulcers, ) Surgeries/Procedures: cholecystectomy, hysterectomy, other (left hip replacement) Allergies/Adverse Reactions: Allergies Allergy/AdvReac Type Severity Reaction Status Date / Time oxymorphone Allergy Face Verified 04/20/19 15:52 Swelling codeine [Codeine] AdvReac Mild nausea Verified 04/20/19 15:52 ketorolac tromethamine AdvReac Mild light Verified 04/20/19 15:52 [From Toradol] headed tramadol HCl [From Ultram] AdvReac Mild light Verified 04/20/19 15:52 headed Home Medications: Ambulatory Orders Medication Instructions Recorded Venlafaxine HCl [Effexor Xr] 100 mg PO DAILY 11/11/13 Estradiol [Minivelle] 1 each TD DIRECTED 07/01/16 Gabapentin [Neurontin] 600 mg PO TID 07/01/16 Propranolol HCl [Inderal] 20 mg PO BID 07/01/16 Quetiapine Fumarate [Seroquel] 400 mg PO HS 07/01/16 - SOCIAL HX Smoking History: greater than 1 pack/day Alcohol Use: occasionally Drug Use: methamphetamines - FAMILY HX Family History: none - VITAL SIGNS Vital Signs: Vital Signs Temp Pulse Resp BP Pulse Ox 96.9 F L 88 19 150/88 98 04/20/19 16:22 04/20/19 16:22 04/20/19 16:22 04/20/19 16:22 04/20/19 16:22 - REVIEWED ASSESSMENTS Nursing Assessment Reviewed: Yes Vitals Reviewed: Yes ED Results Lab/Radiology - Orders Orders: ED Orders Category Date Time Status KNEE 1 OR 2 VIEWS [RAD] Stat Exams 04/20/19 Completed Lower Extremity Problem - EXAM General Appearance: no distress Hips: bilateral hip: non-tender, normal inspection, normal range of motion, no evidence of injury Legs: bilateral: non-tender, normal inspection, normal range of motion, no evidence of injury Knees: right: pain Ankle: bilateral: non-tender, normal inspection, normal range of motion, no evidence of injury Foot: bilateral foot: non-tender, normal inspection, normal range of motion, no evidence of injury Neuro/Tendon: normal sensation, normal motor functions, normal tendon functions RESPIRATORY: breath sounds normal CVS: heart sounds normal JOINT: joints nml, nml ROM, Nml gait/weight bearing NEURO/PSYCH: oriented X3, motor nml, sensation nml, cognition normal SKIN: warm/dry, normal color BACK: normal inspection Discharge Clincal Impression: Right knee pain Referrals: Primary Doctor,No [Primary Care Provider] - 2 Days Additional Instructions: Xray of right knee is negative Take medications as directed May use angeline wrap Follow up with PCP next week Condition: Good Disposition: 01 HOME, SELF-CARE Decision to Admit: NO Decision Time: 19:40
--- NOTE | 2019-04-20 16:12 | Diagnostic Imaging Report ---
PATIENT MR#: [id number] PATIENT PATIENT NAME: MANDA SPRING DATE OF : 1980 REFERRING PHYSICIAN: Neelam Sweeeny EXAM DATE: 04/20/2019 ACCESSION NUMBER: [id number] EXAM DESCRIPTION: KNEE 1 OR 2 VIEWS KNEE 2 VIEWS History: MEDIAL PAIN OF THE RIGHT KNEE Findings: The osseous structures are intact without acute fracture. 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 The joint space and alignment are sary l. There is no soft tissue swelling. Impression: 1. No acute osseous abnormality. Read by: Dr. Kam Phillip Transcribed by: Transcribed Date: Electronically signed by: Dr. Kam Phillip Date signed: 04/20/2019 4:11:43 PM
[2019-04-20 16:23] VITALS: BP 133/86
== END 2019-04-20 16:23 | disposition home or self-care (01) ==
LOC: ED 15:35
DX: M25.561 Pain in right knee (principal)
CPT/HCPCS: 73560; 99282